=== PATIENT | female | born 1930 | race Caucasian/White ===

== ENCOUNTER 2019-03-08 23:52 | Inpatient (IN) | payer MEDICARE, MEDICAID ==
[~2019-03-08] VITALS: Ht 167.6 cm; Wt 53.5 kg
[2019-03-09] MEDS ORDERED: ONDANSETRON HCL/PF 4 MG/2 ML VIAL IVP ONE
[2019-03-09] MEDS ORDERED: PANTOPRAZOLE 40 MG VIAL IV ONE
[2019-03-09] MEDS ORDERED: WATER FOR INJECTION,STERILE 10 ML ONE (00:02)
[2019-03-09] MEDS ORDERED: PANTOPRAZOLE 40 MG VIAL ONE (00:02)
[2019-03-09] MEDS ORDERED: ONDANSETRON HCL/PF 4 MG/2 ML VIAL ONE ×2 (00:02→04:26)
[2019-03-09 00:24] LABS: BASOPHILS # (AUTO) 0.1 /CMM (0.0-0.2); BASOPHILS % (AUTO) 0.5 % (0.0-2.0); EOSINOPHILS % (AUTO) 0.1 % (0.0-6.0); HEMATOCRIT 46 % (33-45); HEMOGLOBIN 15.2 g/dL (11.5-14.8); LYMPHOCYTES # (AUTO) 1.4 /CMM (0.8-4.8); LYMPHOCYTES % (AUTO) 7.6 % (20.0-44.0); MEAN CORPUSCULAR HGB CONC 33 g/dl (31.0-36.0); MEAN CORPUSCULAR VOLUME 91 fL (82-100); MONOCYTES # (AUTO) 0.9 /CMM (0.1-1.30); MONOCYTES % (AUTO) 4.8 % (2.0-12.0); NEUTROPHILS # (AUTO) 15.8 /CMM (1.8-8.9); PLATELET COUNT (AUTO) 369 /CMM (150-450); RED BLOOD CELL COUNT(AUTO) 5.11 MIL/uL (4.0-5.2); WHITE BLOOD COUNT (AUTO) 18.2 K/uL (4.3-11.0)
[2019-03-09 00:44] LABS: CALCIUM, SERUM 9.1 mg/dL (8.5-10.1); CARBON DIOXIDE 19 mmol/L (21-32); CHLORIDE 91 mmol/L (98-107); CREATININE 0.8 mg/dL (0.6-1.3); GLUCOSE 215 mg/dL (74-106); POTASSIUM 3.9 mmol/L (3.5-5.1); SODIUM SERUM 129 mmol/L (136-145); UREA NITROGEN, BLOOD 21 mg/dL (7-18)
[2019-03-09 00:49] LABS: ALANINE AMINOTRANSFERASE 11 U/L (12-78); ALBUMIN 2.9 g/dL (3.4-5.0); ALKALINE PHOSPHATASE 115 U/L (46-116); ASPARTATE AMINOTRANSFERASE 26 U/L (15-37); BILIRUBIN,DIRECT 0.2 mg/dL (0.0-0.2); BILIRUBIN,TOTAL 0.5 mg/dL (0.2-1.0); LIPASE 39 U/L (73-393); TOTAL PROTEIN, SERUM 7.8 g/dL (6.4-8.2)
[2019-03-09] MEDS ORDERED: FERR325T23 PO (01:05)
[2019-03-09] MEDS ORDERED: SODI100037 PO (01:05)
[2019-03-09] MEDS ORDERED: NIFE60TA69 PO (01:05)
[2019-03-09] MEDS ORDERED: SENN-168 PO (01:05)
[2019-03-09] MEDS ORDERED: PREG50CA PO (01:05)
[2019-03-09] MEDS ORDERED: CHOL200026 PO (01:05)
[2019-03-09] MEDS ORDERED: LEVO50TA8 PO (01:05)
[2019-03-09] MEDS ORDERED: ENAL20TA PO (01:05)
[2019-03-09] MEDS ORDERED: NA P133E RC (01:05)
[2019-03-09] MEDS ORDERED: ESTR0.623 PO (01:05)
[2019-03-09] MEDS ORDERED: GLUC100017 PO (01:05)
[2019-03-09] MEDS ORDERED: LIDO30CR47 TP (01:05)
[2019-03-09] MEDS ORDERED: PHEN57OI20 RC (01:05)
[2019-03-09] MEDS ORDERED: LIDO40SO4 TP (01:05)
[2019-03-09] MEDS ORDERED: METO-356 PO (01:05)
[2019-03-09] MEDS ORDERED: BISA-79 PR (01:05)
[2019-03-09] MEDS ORDERED: MULT-447 PO (01:05)
[2019-03-09] MEDS ORDERED: ASCO500T9 PO (01:05)
[2019-03-09] MEDS ORDERED: ACET-2605 PO (01:05)
[2019-03-09] MEDS ORDERED: MAGN2400 PO (01:05)
[2019-03-09] MEDS ORDERED: ZINC220T4 PO (01:05)
[2019-03-09] MEDS ORDERED: CRAN3875 PO (01:05)
[2019-03-09] MEDS ORDERED: HYDR-4354 PO (01:05)
[2019-03-09] MEDS ORDERED: TYL2T PO (01:05)
[2019-03-09] MEDS ORDERED: DOCU-141 PO (01:05)
[2019-03-09] MEDS ORDERED: OXYC10TA59 PO (01:05)
[2019-03-09 01:15] LABS: APPEARANCE,URINE Turbid (CLEAR); BILIRUBIN,URINE MODERATE (NEGATIVE); BLOOD, URINE Trace-intact Ery/uL (NEGATIVE); COLOR,URINE Dark (YELLOW); KETONES,URINE 15 (NEGATIVE); LEUKOCYTE ESTERASE ,URINE Large (NEGATIVE); NITRITE, URINE Negative (NEGATIVE); PH,URINE 8.5 (5.0-8.0); PROTEIN,URINE 100 mg/dl (NEGATIVE); UGLUCOSE Negative (NEGATIVE)
[2019-03-09 01:39] LABS: WBC,URINE 21-50 /HPF (0-3)
[2019-03-09 01:40] LABS: BACTERIA,URINE Many /HPF (None Seen); SQUAMOUS EPITHELIAL CELL,UR Few /HPF (None Seen)
[2019-03-09 01:41] LABS: TRIPLE PHOSPHATE CRYSTAL,UR Moderate /HPF (None Seen)
[2019-03-09] MEDS ORDERED: CIPROFLOXACIN IV RTU 400 MG in PREMIX 1 EA IV SCH ×3 (02:00→09:00)
[2019-03-09] MEDS ORDERED: FLAGYL/NS RTU 500 MG/100 ML PIGGYBACK IV ONE (02:00)
[2019-03-09] MEDS ORDERED: CIPROFLOXACIN IV RTU 200 ML IV ONE (02:05)
[2019-03-09] MEDS ORDERED: METRONIDAZOLE 500MG/ NS 100ML 100 ML IV ONE (02:05)
[2019-03-09] MEDS ORDERED: IV NS 0.9% 1,000 ML BAG IV ONE ×2 (03:00)
[2019-03-09] MEDS ORDERED: ONDANSETRON HCL/PF 4 MG/2 ML VIAL IVP PRN (03:30)
[2019-03-09] MEDS ORDERED: ACETAMINOPHEN 325 MG TABLET PO PRN (03:30)
[2019-03-09] MEDS ORDERED: ONDANSETRON HCL/PF 4 MG/2 ML VIAL IV PRN (03:30)
[2019-03-09] MEDS ORDERED: INSULIN REGULAR, HUMAN 100 UNIT/ML 3 ML VIAL SQ PRN (03:30)
[2019-03-09] MEDS ORDERED: IV NS 0.9% 1,000 ML IV SCH (03:30)
[2019-03-09] MEDS ORDERED: DEXTROSE 50%-WATER 50 ML DISP.SYRIN IV PRN (03:30)
[2019-03-09] MEDS ORDERED: LIDOCAINE 4% TP PRN (03:30)
[2019-03-09] MEDS: METRONIDAZOLE 500MG/ NS 100ML 500 MG in PREMIX 1 EA IV SCH ×2 (03:39→13:40)
[2019-03-09 06:38] LABS: BASOPHILS % (AUTO) 0.1 % (0.0-2.0); HEMATOCRIT 37 % (33-45); HEMOGLOBIN 12.4 g/dL (11.5-14.8); LYMPHOCYTES # (AUTO) 1.4 /CMM (0.8-4.8); LYMPHOCYTES % (AUTO) 8.4 % (20.0-44.0); MEAN CORPUSCULAR HGB CONC 33 g/dl (31.0-36.0); MEAN CORPUSCULAR VOLUME 89 fL (82-100); MONOCYTES # (AUTO) 1.9 /CMM (0.1-1.30); MONOCYTES % (AUTO) 11.4 % (2.0-12.0); NEUTROPHILS # (AUTO) 13.1 /CMM (1.8-8.9); NEUTROPHILS % (AUTO) 80.1 % (43.0-81.0); PLATELET COUNT (AUTO) 339 /CMM (150-450); RED BLOOD CELL COUNT(AUTO) 4.19 MIL/uL (4.0-5.2); WHITE BLOOD COUNT (AUTO) 16.4 K/uL (4.3-11.0)
[2019-03-09 06:52] LABS: ALBUMIN 2.4 g/dL (3.4-5.0); BILIRUBIN,TOTAL 0.6 mg/dL (0.2-1.0); CALCIUM, SERUM 8.1 mg/dL (8.5-10.1); MAGNESIUM 1.6 mg/dL (1.8-2.4); PHOSPHORUS 5.2 mg/dL (2.5-4.9); POTASSIUM 3.6 mmol/L (3.5-5.1); TOTAL PROTEIN, SERUM 6.6 g/dL (6.4-8.2)
[2019-03-09 07:00] VITALS: BP 105/63
[2019-03-09] MEDS: BLOOD SUGAR DIAGNOSTIC 1 EACH STRIP IN SCH ×3 (07:21→18:09)
[2019-03-09] MEDS ORDERED: MAGNESIUM HYDROXIDE 30 ML UDC PO PRN (07:30)
[2019-03-09] MEDS: MULTIVIT W/MINERALS 1 TAB TABLET PO SCH (09:00)
[2019-03-09] MEDS: ESTROGENS,CONJUGATED 0.625 MG TABLET PO SCH (09:00)
[2019-03-09] MEDS: ZINC SULFATE 220 MG CAPSULE PO SCH (09:00)
[2019-03-09] MEDS: DOCUSATE SODIUM 100 MG CAPSULE PO SCH ×2 (09:00→17:00)
[2019-03-09] MEDS ORDERED: Magnesium 1GM/D5W 100ML PREMIX PIGGYBACK IV ONE (09:00)
[2019-03-09] MEDS: LEVOTHYROXINE SODIUM 50 MCG TABLET PO SCH (09:00)
[2019-03-09] MEDS ORDERED: IV NS 0.9% 1,000 ML IV PRN ×4 (09:00→17:30)
[2019-03-09] MEDS: FERROUS SULFATE (325 MG) 325 MG/TAB TABLET PO SCH ×2 (09:00→17:00)
[2019-03-09] MEDS: SODIUM CHLORIDE 1000 MG TABLET PO SCH (09:00)
[2019-03-09] MEDS: CHOLECALCIFEROL 1,000 UNIT TABLET (VIT D3) PO SCH (09:00)
[2019-03-09] MEDS ORDERED: PANTOPRAZOLE 40 MG VIAL IV SCH (09:00)
[2019-03-09] MEDS: ASCORBIC ACID 500 MG TABLET PO SCH (09:00)
[2019-03-09] MEDS ORDERED: PHENYLEPHRINE/SHK LV/MO/PET,WH 30 GM TUBE RC PRN (09:00)
[2019-03-09] MEDS: NEXIUM 40 MG VIAL IV SCH (09:22)
[2019-03-09] MEDS: IV NS 0.9% 1,000 ML IV PRN ×2 (09:23→14:23)
[2019-03-09 09:35] LABS: ABG BASE EXCESS -9.8 mmol/L; ABG OXYGEN SATURATION 97.6 % (92.0-98.5); ABG PCO2 29.3 mmHg (35.0-45.0); ABG PH 7.324 (7.350-7.450); ABG PO2 108.1 mmHg (75.0-100.0); COHb 0.3 % (0.5-1.5); MetHb 0.6 % (0.0-1.5); O2Hb 96.7 % (94.0-97.0); SITE, ABG Right Brachial; VENT MODE, BG 2LPM VIA NC
[2019-03-09] MEDS: Magnesium 1GM/D5W 100ML PREMIX 100 ML IV SCH ×3 (09:41→17:48)
[2019-03-09 10:54] LABS: HEMOGLOBIN 10.6 g/dL (11.5-14.8)
[2019-03-09] MEDS: PREGABALIN 25 MG CAPSULE PO SCH ×2 (12:30→21:00)
[2019-03-09 12:53] LABS: BASOPHILS % (AUTO) 0.1 % (0.0-2.0); HEMATOCRIT 31 % (33-45); HEMOGLOBIN 10.1 g/dL (11.5-14.8); LYMPHOCYTES # (AUTO) 1.4 /CMM (0.8-4.8); LYMPHOCYTES % (AUTO) 6.9 % (20.0-44.0); MEAN CORPUSCULAR HGB CONC 33 g/dl (31.0-36.0); MEAN CORPUSCULAR VOLUME 89 fL (82-100); MONOCYTES # (AUTO) 2.2 /CMM (0.1-1.30); MONOCYTES % (AUTO) 10.7 % (2.0-12.0); NEUTROPHILS # (AUTO) 16.9 /CMM (1.8-8.9); NEUTROPHILS % (AUTO) 82.3 % (43.0-81.0); PLATELET COUNT (AUTO) 309 /CMM (150-450); WHITE BLOOD COUNT (AUTO) 20.6 K/uL (4.3-11.0)
[2019-03-09 13:13] LABS: CALCIUM, SERUM 7.7 mg/dL (8.5-10.1); CARBON DIOXIDE 19 mmol/L (21-32); CHLORIDE 98 mmol/L (98-107); CREATININE 1.4 mg/dL (0.6-1.3); GLUCOSE 164 mg/dL (74-106); POTASSIUM 4.6 mmol/L (3.5-5.1); SODIUM SERUM 130 mmol/L (136-145); UREA NITROGEN, BLOOD 29 mg/dL (7-18)
[2019-03-09 13:34] VITALS: BP 128/64
[2019-03-09 16:00] VITALS: BP 133/64
[2019-03-09] MEDS ORDERED: HYDROCODONE/APAP 5/325MG 1 EACH TABLET PO PRN (16:00)
[2019-03-09] MEDS ORDERED: LORAZEPAM INJ 2 MG/ML VIAL IV PRN (16:00)
[2019-03-09] MEDS ORDERED: FEE PK DOSING 1 MIN EA MC ONE (20:05)
[2019-03-09 20:10] VITALS: BP 128/58
[2019-03-09] MEDS ORDERED: VANCOMYCIN 1 GM in IV D5W 250 ML IV ONE (21:00)
[2019-03-09] MEDS: MEROPENEM 500 MG in IV NS 0.9% 50 ML IV SCH (21:30)
[2019-03-09] MEDS: SENNOSIDES 8.6 MG TABLET PO SCH (22:00)
[2019-03-10] VITALS (14 sets, daily range): BP systolic 90–149; BP diastolic 30–88
[2019-03-10] MEDS: BLOOD SUGAR DIAGNOSTIC 1 EACH STRIP IN SCH ×4 (00:25→17:41)
[2019-03-10 00:45] LABS: HEMOGLOBIN 9.4 g/dL (11.5-14.8)
[2019-03-10] MEDS: PREGABALIN 25 MG CAPSULE PO SCH ×3 (05:00→21:00)
[2019-03-10] MEDS ORDERED: CIPROFLOXACIN IV RTU 400 MG in PREMIX 1 EA IV SCH (05:00)
[2019-03-10 06:49] LABS: HEMOGLOBIN 7.9 g/dL (11.5-14.8)
[2019-03-10 06:57] LABS: CALCIUM, SERUM 6.8 mg/dL (8.5-10.1); CREATININE 1.1 mg/dL (0.6-1.3); POTASSIUM 4.1 mmol/L (3.5-5.1)
[2019-03-10] MEDS: ESTROGENS,CONJUGATED 0.625 MG TABLET PO SCH (09:00)
[2019-03-10] MEDS: ASCORBIC ACID 500 MG TABLET PO SCH (09:00)
[2019-03-10] MEDS: DOCUSATE SODIUM 100 MG CAPSULE PO SCH ×2 (09:00→17:00)
[2019-03-10] MEDS: CHOLECALCIFEROL 1,000 UNIT TABLET (VIT D3) PO SCH (09:00)
[2019-03-10] MEDS: MULTIVIT W/MINERALS 1 TAB TABLET PO SCH (09:00)
[2019-03-10] MEDS: SODIUM CHLORIDE 1000 MG TABLET PO SCH (09:00)
[2019-03-10] MEDS: FERROUS SULFATE (325 MG) 325 MG/TAB TABLET PO SCH ×2 (09:00→17:00)
[2019-03-10] MEDS: LEVOTHYROXINE SODIUM 50 MCG TABLET PO SCH (09:00)
[2019-03-10] MEDS: ZINC SULFATE 220 MG CAPSULE PO SCH (09:00)
[2019-03-10] MEDS: LIDOCAINE SOLN 4% 50 ML BOTTLE TP SCH (09:13)
[2019-03-10] MEDS: MEROPENEM 500 MG in IV NS 0.9% 50 ML IV SCH ×2 (09:35→20:22)
[2019-03-10] MEDS: DAKINS HALF STRENGTH (0.25%) 480 ML BOTTLE TOP SCH (10:29)
[2019-03-10] MEDS: NEXIUM 40 MG VIAL IV SCH (10:29)
[2019-03-10] MEDS ORDERED: BARIUM SULFATE 98% 135 ML SUSP.RECON PO ONE (11:00)
[2019-03-10] MEDS ORDERED: DIATR MEGLU/DIATRIZOATE SODIUM 120 ML BOTTLE (GASTROGRAPHIN) ONE (15:23)
[2019-03-10 16:27] LABS: ABG BASE EXCESS -15.5 mmol/L; ABG OXYGEN SATURATION 87.9 % (92.0-98.5); ABG PCO2 29.3 mmHg (35.0-45.0); ABG PO2 64.8 mmHg (75.0-100.0); AaDO2 157.9 mmHg; COHb 0.3 % (0.5-1.5); MetHb 0.7 % (0.0-1.5); SITE, ABG Left Brachial
[2019-03-10] MEDS ORDERED: IV NS 0.9% 250 ML BAG IV ONE (16:30)
[2019-03-10] MEDS ORDERED: PROPOFOL 100 ML IV PRN (17:00)
[2019-03-10] MEDS ORDERED: NOREPINEPHRINE 8 MG in IV D5W 500 ML IV PRN ×2 (17:00→17:30)
[2019-03-10] MEDS: PROPOFOL 100 ML IV PRN (17:28)
[2019-03-10] MEDS ORDERED: IV NS 0.9% 2,000 ML IV ONE (17:30)
[2019-03-10] MEDS ORDERED: IV NS 0.9% 2,000 ML IV PRN (17:30)
[2019-03-10 18:11] LABS: ABG BASE EXCESS -13.6 mmol/L; ABG OXYGEN SATURATION 98.8 % (92.0-98.5); ABG PCO2 27.8 mmHg (35.0-45.0); ABG PH 7.261 (7.350-7.450); ABG PO2 243.5 mmHg (75.0-100.0); AaDO2 441.7 mmHg; COHb 0.5 % (0.5-1.5); MetHb 1.2 % (0.0-1.5); O2Hb 97.1 % (94.0-97.0); PEEP,BG 0 cm H2O; SITE, ABG Left Brachial; VT, ABG 550 mL
[2019-03-10] MEDS: IV D5/0.45 NACL 1,000 ML IV PRN (18:12)
[2019-03-10] MEDS ORDERED: SODIUM BICARBONATE SYR 50 MEQ/50 ML DISP.SYRIN IV ONE (18:30)
[2019-03-10] MEDS ORDERED: VANCOMYCIN 0.75 GM in IV D5W 250 ML IV SCH (21:00)
[2019-03-10] MEDS ORDERED: VANCOMYCIN 1 GM in IV D5W 250 ML IV SCH (21:00)
[2019-03-10 21:05] LABS: ABG BASE EXCESS -10.1 mmol/L; ABG OXYGEN SATURATION 94.4 % (92.0-98.5); ABG PCO2 22.9 mmHg (35.0-45.0); ABG PH 7.391 (7.350-7.450); ABG PO2 78.1 mmHg (75.0-100.0); COHb 0.3 % (0.5-1.5); MetHb 0.8 % (0.0-1.5); O2Hb 93.4 % (94.0-97.0); SITE, ABG Right Brachial; VT, ABG 500 mL
[2019-03-10] MEDS: SENNOSIDES 8.6 MG TABLET PO SCH (21:37)
[2019-03-11] VITALS (45 sets, daily range): BP systolic 62–153; BP diastolic 29–68
[2019-03-11] MEDS: BLOOD SUGAR DIAGNOSTIC 1 EACH STRIP IN SCH ×4 (00:01→12:44)
[2019-03-11 03:09] LABS: BASOPHILS # (AUTO) 0.1 /CMM (0.0-0.2); BASOPHILS % (AUTO) 0.5 % (0.0-2.0); HEMATOCRIT 21 % (33-45); HEMOGLOBIN 7.1 g/dL (11.5-14.8); LYMPHOCYTES # (AUTO) 1.4 /CMM (0.8-4.8); LYMPHOCYTES % (AUTO) 7.6 % (20.0-44.0); MEAN CORPUSCULAR HGB CONC 33 g/dl (31.0-36.0); MEAN CORPUSCULAR VOLUME 89 fL (82-100); MONOCYTES # (AUTO) 1.2 /CMM (0.1-1.30); MONOCYTES % (AUTO) 6.3 % (2.0-12.0); NEUTROPHILS # (AUTO) 15.7 /CMM (1.8-8.9); NEUTROPHILS % (AUTO) 85.6 % (43.0-81.0); PLATELET COUNT (AUTO) 220 /CMM (150-450); RED BLOOD CELL COUNT(AUTO) 2.41 MIL/uL (4.0-5.2); WHITE BLOOD COUNT (AUTO) 18.3 K/uL (4.3-11.0)
[2019-03-11] MEDS: PROPOFOL 100 ML IV PRN (03:15)
[2019-03-11 03:29] LABS: ALANINE AMINOTRANSFERASE 7 U/L (12-78); ALKALINE PHOSPHATASE 84 U/L (46-116); ASPARTATE AMINOTRANSFERASE 75 U/L (15-37); BILIRUBIN,TOTAL 0.7 mg/dL (0.2-1.0); CALCIUM, SERUM 6.5 mg/dL (8.5-10.1); CARBON DIOXIDE 17 mmol/L (21-32); CHLORIDE 101 mmol/L (98-107); CREATININE 1.7 mg/dL (0.6-1.3); GLUCOSE 347 mg/dL (74-106); PHOSPHORUS 3.7 mg/dL (2.5-4.9); POTASSIUM 3.9 mmol/L (3.5-5.1); SODIUM SERUM 131 mmol/L (136-145); TOTAL PROTEIN, SERUM 4.5 g/dL (6.4-8.2); UREA NITROGEN, BLOOD 37 mg/dL (7-18)
[2019-03-11] MEDS ORDERED: DILTIAZEM HCL 50 MG IV IV ONE (03:30)
[2019-03-11 03:47] LABS: ALBUMIN 1.4 g/dL (3.4-5.0)
[2019-03-11] MEDS ORDERED: BLOOD SUGAR DIAGNOSTIC 1 EACH STRIP IN SCH (04:00)
[2019-03-11] MEDS ORDERED: DEXTROSE 50%-WATER 50 ML DISP.SYRIN IV PRN ×2 (04:00→05:00)
[2019-03-11] MEDS ORDERED: INSULIN REGULAR, HUMAN 100 UNIT/ML 3 ML VIAL SQ PRN ×2 (04:00→05:00)
[2019-03-11] MEDS: PREGABALIN 25 MG CAPSULE PO SCH (05:00)
[2019-03-11] MEDS ORDERED: NOREPINEPHRINE 8 MG in IV D5W 500 ML IV PRN (06:30)
[2019-03-11] MEDS: IV D5/0.45 NACL 1,000 ML IV PRN (06:48)
[2019-03-11] MEDS ORDERED: FEE EMEERGENCY 1 MIN EA MC ONE (08:47)
[2019-03-11] MEDS ORDERED: ETOMIDATE 2 MG/ML VIAL IV ONE (08:47)
[2019-03-11] MEDS: MEROPENEM 500 MG in IV NS 0.9% 50 ML IV SCH (08:47)
[2019-03-11] MEDS: NEXIUM 40 MG VIAL IV SCH (08:48)
[2019-03-11] MEDS: LIDOCAINE SOLN 4% 50 ML BOTTLE TP SCH (09:05)
[2019-03-11] MEDS: DAKINS HALF STRENGTH (0.25%) 480 ML BOTTLE TOP SCH (09:07)
[2019-03-11 10:41] LABS: ABG BASE EXCESS -9.4 mmol/L; ABG OXYGEN SATURATION 90.9 % (92.0-98.5); ABG PH 7.401 (7.350-7.450); ABG PO2 58.5 mmHg (75.0-100.0); AaDO2 415.9 mmHg; COHb 0.1 % (0.5-1.5); MetHb 0.5 % (0.0-1.5); O2Hb 90.4 % (94.0-97.0); SITE, ABG Right Radial; VT, ABG 500 mL
[2019-03-11 13:03] LABS: APPEARANCE,URINE CLOUDY (CLEAR); BILIRUBIN,URINE 2+ (NEGATIVE); BLOOD, URINE 3+ Ery/uL (NEGATIVE); COLOR,URINE DARK YELLO (YELLOW); KETONES,URINE NEGATIVE (NEGATIVE); LEUKOCYTE ESTERASE ,URINE 1+ (NEGATIVE); NITRITE, URINE NEGATIVE (NEGATIVE); PROTEIN,URINE 1+ mg/dl (NEGATIVE); UGLUCOSE NEGATIVE (NEGATIVE)
[2019-03-11 13:25] LABS: CREATININE, URINE 88.1 MG/DL (30.0-125.0); URINE TOTAL PROTEIN 149.7 mg/dL (0-11.9)
[2019-03-11 13:39] LABS: BACTERIA,URINE Few /HPF (None Seen); CALCIUM OXALATE CRYSTALS,UR Rare /HPF (None Seen); SQUAMOUS EPITHELIAL CELL,UR Few /HPF (None Seen); WBC,URINE 40-50 /HPF (0-3)
[2019-03-11 13:40] LABS: URINE AMORPHOUS URATE Moderate /HPF (None Seen)
[2019-03-11 14:04] LABS: EOSINOPHIL,URINE None Seen
[2019-03-11 16:12] LABS: BILIRUBIN,DIRECT 0.5 mg/dL (0.0-0.2)
[2019-03-11] MEDS ORDERED: MORPHINE SULFATE INJ 2 MG/ML DISP.SYRIN IV ONE (17:00)
[2019-03-11] MEDS ORDERED: DC PROPOFOL WHEN EXTUBATED XX PRN (17:00)
[2019-03-11] MEDS ORDERED: MORPHINE SULFATE/PF 30 MG in IV NS 0.9% 27 ML, PCA TOTAL VOLUME 1 BAG IV PRN ×3 (17:30)
[2019-03-11] MEDS ORDERED: MORPHINE SULFATE IV PRN (18:00)
[2019-03-11] MEDS ORDERED: NS 0.9% IV PRN (18:00)
[2019-03-12] MEDS ORDERED: VANCOMYCIN 0.75 GM in IV D5W 250 ML IV SCH (09:00)
== END 2019-03-11 20:20 | disposition expired | DRG 853 ==
LOC: ER 23:56 → TELE 03-09 03:09 → MED 03-09 08:38 → TELE 03-09 12:59 → MED 03-10 08:51 → ICU 03-10 16:31
PROVIDERS: ADMIT Internal Medicine; ATTEND Internal Medicine
PROC: 0QBL0ZZ Excision of Right Tarsal, Open Approach (ICD-10-PCS; 2019-03-09)
PROC: 02HV33Z Insertion of Infusion Device into Superior Vena Cava, Percutaneous Approach (ICD-10-PCS; 2019-03-09)
PROC: B548ZZA Ultrasonography of Superior Vena Cava, Guidance (ICD-10-PCS; 2019-03-09)
PROC: 5A1945Z Respiratory Ventilation, 24-96 Consecutive Hours (ICD-10-PCS; principal; 2019-03-10)
PROC: 0BH18EZ Insertion of Endotracheal Airway into Trachea, Via Natural or Artificial Opening Endoscopic (ICD-10-PCS; 2019-03-10)
PROC: 30233N1 Transfusion of Nonautologous Red Blood Cells into Peripheral Vein, Percutaneous Approach (ICD-10-PCS; 2019-03-11)
DX: A41.9 Sepsis, unspecified organism (principal); L89.614 Pressure ulcer of right heel, stage 4; G93.41 Metabolic encephalopathy; J96.01 Acute respiratory failure with hypoxia; N17.0 Acute kidney failure with tubular necrosis; R65.21 Severe sepsis with septic shock; J12.9 Viral pneumonia, unspecified; K92.2 Gastrointestinal hemorrhage, unspecified; E87.1 Hypo-osmolality and hyponatremia; E87.2 Acidosis; N39.0 Urinary tract infection, site not specified; K56.600 Partial intestinal obstruction, unspecified as to cause; K55.9 Vascular disorder of intestine, unspecified; Z51.5 Encounter for palliative care; I10 Essential (primary) hypertension; F03.90 Unspecified dementia, unspecified severity, without behavioral disturbance, psychotic disturbance, mood disturbance, and anxiety; E03.9 Hypothyroidism, unspecified; F29 Unspecified psychosis not due to a substance or known physiological condition; N31.9 Neuromuscular dysfunction of bladder, unspecified; E83.42 Hypomagnesemia; E83.51 Hypocalcemia; G20 Parkinson's disease; K21.9 Gastro-esophageal reflux disease without esophagitis; Z74.01 Bed confinement status; Z85.3 Personal history of malignant neoplasm of breast; Z86.73 Personal history of transient ischemic attack (TIA), and cerebral infarction without residual deficits; Z88.0 Allergy status to penicillin; Z88.2 Allergy status to sulfonamides; Z87.440 Personal history of urinary (tract) infections; L89.150 Pressure ulcer of sacral region, unstageable; B96.4 Proteus (mirabilis) (morganii) as the cause of diseases classified elsewhere; R00.0 Tachycardia, unspecified; D64.9 Anemia, unspecified; K86.89 Other specified diseases of pancreas; E86.1 Hypovolemia; D50.0 Iron deficiency anemia secondary to blood loss (chronic); I48.91 Unspecified atrial fibrillation; F02.80 Dementia in other diseases classified elsewhere, unspecified severity, without behavioral disturbance, psychotic disturbance, mood disturbance, and anxiety; K63.89 Other specified diseases of intestine
CPT/HCPCS: 31720; 36415; 36569; 36600; 70450-TC; 71045-TC; 74018; 74250-TC; 76770-TC; 80048-TC; 80053-TC; 80061-TC; 80076-TC; 80305; 81000-TC; 82248-TC; 82570-TC; 82728-TC; 82803-TC; 82962-TC; 83540-TC; 83605-TC; 83690-TC; 83735-TC; 83935-TC; 84100-TC; 84155-TC; 84300-TC; 84439-TC; 84443-TC; 84484-TC; 85025-TC; 85027-TC; 85730-TC; 86850-TC; 86921-TC; 87040-TC; 87070-TC; 87081-TC; 87086-TC; 87186-TC; 93307-TC; 94002-TC; 94003-TC; 94640-TC; 99082-TC; A4216; A6403; C1751; C9113; G0378; J0744; J1815; J2060; J2185; J2270; J2274; J2405; J3370; J3475; J3490; J7030; J7042; J7050; J7060; P9016-BL; Q9963